=== PATIENT | female | born 1970 | race African-American/Black ===

== ENCOUNTER 2016-06-16 04:58 | Emergency (ER) | payer SELFPAY ==
[~2016-06-16 04:58] MED LIST: ALBUTEROL17 GM INH; AMOXICILLIN500 M1 PO; COUGH SYRUP PO; FLEXERIL10 MG PO; MUCINEX D ER T1 EAC1 PO; PREDNISONE PO; PROMETHAZINE D118 ML PO; VOLTAREN75 MG PO; ZESTRIL10 MG PO; ZITHROMAX PO
== END 2016-06-16 05:01 | disposition home or self-care (01) ==
LOC: CED 04:58
DX: J20.9 Acute bronchitis, unspecified (principal); H65.91 Unspecified nonsuppurative otitis media, right ear; E11.9 Type 2 diabetes mellitus without complications; Z79.84 Long term (current) use of oral hypoglycemic drugs; I10 Essential (primary) hypertension; Z79.899 Other long term (current) drug therapy
CPT/HCPCS: 99283